=== PATIENT | male | born 1945 | race Caucasian/White ===

== ENCOUNTER → 2018-06-13 | Outpatient (CLI) | payer OTHER ==
[~2018-06-13] VITALS: Ht 188 cm; Wt 143.2 kg
[~2018-06-13] MED LIST: ASPIRIN325 PO; CLARITIN10 MG PO; CLONAZEPAM 0.50.5 M1 PO; FINASTERIDE5 MG PO; FISH OIL 1,001000 M2 PO; FLOMAX0.4 MG PO; FOLBIC RF TABL1 EACH PO; MAGOX 400400 MG PO; MAXIMUM DAILY1 EACH PO; METOPROLOL TART25 MG PO; NABUMETONE 500500 M1 PO; NEXIUM40 MG PO; POTASSIUM CITR10 ME1 PO; SIMVASTATIN40 MG PO; TELMISARTAN40 MG PO; VITAMINC500 PO; ZYLOPRIM300 MG PO
[2018-06-13 08:42] VITALS: BP 168/87
--- NOTE | 2018-06-13 08:58 | NUR ---
Pain Clinic Assessment: 1. History of Osteoarthritis: History of Rheumatoid Arthritis: 2. Height: 6 ft. 2 in. 188.0 cm. Weight: 315.6 lb. oz. 143.156 kg. Patient's BMI: 40.5 3. Vital Signs: BP: 168/87 Pulse: 83 Resp: 20 Temp: 02 Sat: 96 ECG Mon: 4. Pain Intensity: 6 5. Fall Risk: Dizziness: Y Needs help standing or walking: N Fallen in the last 3 months: N Fall risk comments: 6. Patient on Blood Thinner: None 7. History of Hypertension: Y 8. Opioid Therapy greater than 6 weeks: N Opiate Contract Signed: 9. Risk Assessment Tool Provided: 10. Functional Assessment Tool: 48 11. Recreational Drug Use: Past greater than 3 mos Drug Type: Tobacco Use: Never Smoker Tobacco Type: Amount or Packs/day: How Many Years: Alcohol Use: Yes Frequency: Weekly Quant:
--- NOTE | 2018-06-19 07:33 | HPC ---
[facility] [place] [address] PAIN MANAGEMENT CONSULTATION Name: REINALDO LOMBARDO Room #: REG ELTON Huff#: [id number] Admission: 06/13/18 ������������������ Attend Phys: Greg Spencer DO Discharge: ������������������ Date of : 43 Report #: [id number] THIS REPORT FOR: //name// CC: Macario Molina MD DATE OF SERVICE: 06/13/2018 REFERRING PHYSICIAN: Macario Evangelista M.D. CHIEF COMPLAINT: Axial back pain. HISTORY OF PRESENT ILLNESS: As you know, the patient is a 72-year-old male who was seen by my partner, Dr. Lay Molina. He was followed at our clinic at [facility]. It was determined that the patient's symptoms might be amenable to radiofrequency lesioning of the medial branch nerves. He was sent to our clinic to trial bilateral L2, L3, L4 and L5 medial branch nerve blocks. The patient apparently did well with the initial intra-articular facet injections at L4-L5 and L5-S1 with improvement in symptoms of approximately 30% overall. He received excellent benefit for approximately one day. He has been referred to my clinic to trial a medial branch nerve blocks if these are successful at alleviating the patient's symptoms to greater than 70% overall improvement, we would look forward to moving towards radiofrequency lesioning. The patient was advised radiofrequency lesioning is a stage process with one side being performed followed by 2 weeks later with the second side being completed. The patient has agreed to undergo the medial branch nerve blocks today. If these are successful, then move forward with radiofrequency lesioning. Pain score today is rated at 6/10. ALLERGIES: MORPHINE. CURRENT MEDICATIONS: Multivitamin, ascorbic acid, magnesium oxide, vitamin B12, loratadine, omega 3 fish oil, aspirin, tamsulosin, metoprolol, clonazepam, fluticasone, telmisartan, omeprazole, nabumetone, potassium citrate, allopurinol and simvastatin. SOCIAL HISTORY: The patient is a nonsmoker. He denies IV or illicit drug use. Admits to approximately 2 alcoholic beverages per week. He is retired and has been so for nearly 13 years. He is unaccompanied at today's visit. IMAGING DATA: No new imaging available. PQRS: The patient has known osteoarthritic changes of the lumbar spine, no rheumatoid arthritis. He is placing pain intensity 6/10, is not a fall risk, [place] [address] PAIN MANAGEMENT CONSULTATION Name: REINALDO LOMBARDO Room #: REG [facility]#: [id number] Admission: 06/13/18 ������������������ Attend Phys: Greg Spencer DO Discharge: ������������������ Date of : 44 Report #: [id number] has not had a fall in the last 3 months. He is not on blood thinners. He is treated for hypertension. He is not on chronic opioids. He has a low opioid addiction potential. He is placing pain impact score 48/70 indicating severe interference of daily activities secondary to pain. PHYSICAL EXAMINATION: VITAL SIGNS: Blood pressure 168/87, pulse 83 and respiratory rate 20 and unlabored. The patient is 96% on room air. Height 6 feet 2 inches, weight 315.6 pounds and BMI calculated 40.5. GENERAL: Well-developed, well-nourished, well-hydrated, class 3, morbidly obese 72-year-old male. He appears his stated age. He is in no acute distress, awake, alert and oriented x 3. Current pain score is rated at 6/10. HEENT: Normocephalic and atraumatic. Pupils equal, round and reactive to light. Extraocular muscles are intact. EXTREMITIES: Show no clubbing, no cyanosis and no edema. MUSCULOSKELETAL: Lower extremity strength appears symmetrical 5/5. He is intact to light touch from L1 through S2 dermatomes. Seated straight leg raising negative. Supine straight leg raising negative. Taryn's test is negative. Modified Gaenslen's positive for axial low back pain. Ankle clonus negative. Babinski is negative. Lumbar provocation testing including extension, rotation, lateral flexion all intensify axial back pain. ASSESSMENT: 1. Lumbosacral spondylosis without radiculopathy. 2. Facet arthropathy of the lumbar spine. 3. Lumbar degeneration. 4. Intractable pain. PLAN: 1. The patient has been referred to my service for evaluation for facet arthropathy pain. The patient does appear to be suffering from facet changes in the lumbar spine. This is confirmed on recent imaging. The patient underwent intra-articular facet injections with Dr. Molina at his last visit with improvement in pain transiently for about 24 hours, long-term benefit about 30%. He returns today per the request of Dr. Molina and his primary care physician to trial medial branch nerve blocks blocking the L2, L3, L4 and L5 medial branch nerves of the bilateral lumbar spine. If this is effective at treating the patient's symptoms and his symptoms are reduced by 70% for greater than a period of 5 hours, then he might be a possible candidate to undergo radiofrequency lesioning. He had been referred to our clinic to trial these medial branch nerve blocks to determine if symptoms can be controlled with interventional treatments. The patient has been advised of the risks and the benefits of bilateral medial branch nerve blocks at 4 levels. These risks include but are not necessarily limited to bleeding, bruising, infection, worsening pain, no relief of pain, [facility] [address] [place] [address] PAIN MANAGEMENT CONSULTATION Name: REINALDO LOMBARDO Room #: REG ELTON Lilia.#: [id number] Admission: 06/13/18 ������������������ Attend Phys: Greg Spencer DO Discharge: ������������������ Date of : 44 Report #: [id number] also risk of temporary or permanent muscle weakness, temporary or permanent nerve damage, possible paralysis and . The patient states understood and wished to proceed. 2. No medication changes made at today's visit. The patient will continue current medical therapy as previously prescribed. 3. The patient will contact our clinic once his pain has returned to its normal level. At that time, we will determine if the time frame is appropriate and we feel he received a significant amount of improvement in symptoms. He is starting his pain level at 6/10. We need to see a greater than 70% improvement in symptoms lasting for at least 3 hours if this medial branch block is to be deemed successful. The patient will contact our clinic and we will determine if whether or not radiofrequency lesioning would be an appropriate next step in treatment. PROCEDURE NOTE DESCRIPTION OF PROCEDURE: Bilateral L2, L3, L4 and L5 medial branch nerve blocks under fluoroscopic guidance. This is the second of 2 diagnostic medial branch blocks on the right and left sides that the patient is undergoing. After obtaining written consent, the patient was taken back to the fluoroscopy suite and placed in a prone position on the fluoroscopy table with a pillow under the abdomen to decrease the lumbar lordosis. The skin overlying the lumbosacral area was prepped and draped in an aseptic fashion. The L3 transverse process corresponding the L2 median branch nerve, L4 transverse process corresponding the L3 median branch nerve and the L5 transverse process corresponding the L4 medial branch nerve on the right and left sides were visualized under AP fluoroscopy. The skin and subcutaneous tissue overlying the target sites of injection 22-gauge 6-inch was anesthetized using 2 mL of 1% lidocaine. A bent spinal needle with a 0.5 mL tip was advanced under fluoroscopic guidance using a superior to inferior and lateral to medial approach to the dorsal, superior and medial aspect of the base of the transverse processes. The needles were then directed ventral, medial and caudad to reach the target locations. An oblique view facilitated needle placement with properly positioned needless in the middle of the "eye" of the Kenji dog for the medial branch blocks. At each site the needles rested on periosteum. After negative aspiration for heme or CSF, 0.5 mL of Omnipaque dye was injected at each site under live fluoroscopy, demonstrating absence of vascular uptake. After negative aspiration for heme or CSF, bupivacaine 0.5% was slowly injected at each site to avoid forcing the solution away from the target points. The needles were then removed. The L5 dorsal ramus block on the right and left sides were performed using a slightly oblique approach under fluoroscopic guidance, placing the needle within [address] [address] PAIN MANAGEMENT CONSULTATION Name: REINALDO LOMBARDO Room #: REG ELTON Huff#: [id number] Admission: 06/13/18 ������������������ Attend Phys: Greg Spencer DO Discharge: ������������������ Date of : 44 Report #: [id number] the groove between the sacral site and the superior articular process of S1. The needle rested on periosteum. After negative aspiration for heme or CSF, 0.5 mL of Omnipaque dye was injected at under live fluoroscopy, demonstrating absence of vascular uptake. After negative aspiration for heme or CSF, bupivacaine 0.5% was slowly injected to avoid forcing the solution away from the target point. The needle was then removed. Sterile bandages were placed over the injection site. There were no apparent complications. The patient tolerated the procedure well and was carefully escorted to the recovery room in stable condition. The VAS was 6/10 before the procedure and 2/10 at 10 minutes after the procedure. After meeting discharge criteria, the patient was discharged home. ��������������������������������������������� <ELECTRONICALLY SIGNED> ���������������������������������������� By: Greg Spencer DO ��������������������������������������������� 06/19/18 0733 [id number] Greg Spencer DO /nt
== END | disposition home or self-care (01) ==
LOC: PAIN 06:47
DX: M47.817 Spondylosis without myelopathy or radiculopathy, lumbosacral region (principal); M12.88 Other specific arthropathies, not elsewhere classified, other specified site; M51.36 Other intervertebral disc degeneration, lumbar region; G89.29 Other chronic pain; E66.01 Morbid (severe) obesity due to excess calories; Z68.41 Body mass index [BMI] 40.0-44.9, adult; Z88.8 Allergy status to other drugs, medicaments and biological substances; Z79.899 Other long term (current) drug therapy; Z79.82 Long term (current) use of aspirin

== ENCOUNTER → 2018-06-20 | Outpatient (CLI) | payer OTHER ==
[~2018-06-20] VITALS: Ht 188 cm; Wt 142.9 kg
--- NOTE | ~2018-06-20 | HPC ---
[address] [address] PAIN MANAGEMENT CONSULTATION Name: REINALDO LOMBARDO Room #: REG ELTON Refugio#: [id number] Admission: 06/20/18 ������������������ Attend Phys: Greg Spencer DO Discharge: ������������������ Date of : 44 Report #: [id number] THIS REPORT FOR: //name// CC: Macario Molina MD DATE OF SERVICE: 06/20/2018 CHIEF COMPLAINT: Axial back pain, left-sided. HISTORY OF PRESENT ILLNESS: As you know, the patient is a 72-year-old male who was seen by my partner, Dr. Lay Molina, for facet arthropathy of the lower lumbar spine. He underwent intra-articular facet injections with good benefit, but only transiently improved the patient's symptoms. He was subsequently referred to our clinic to trial medial branch nerve blocks and possible radiofrequency lesioning. He underwent successfully bilateral L2, L3, L4 L5 medial branch nerve blocks at our last visit reporting excellent benefit. He returns today to begin the radiofrequency lesioning process. He wishes to undergo left side initially as this is the main pain generator. He believes the right side is more reactionary though he does have some changes within that right side that may ultimately need to be addressed as well. He returns to undergo the left L2, L3, L4, L5 radiofrequency lesioning of the medial branch nerves of the lumbar spine. He denies new injury, new trauma or any changes in medical history since our last visit. ALLERGIES: MORPHINE. CURRENT MEDICATIONS: Multivitamin, ascorbic acid, magnesium oxide, vitamin B12, loratadine, omega 3 fish oil, aspirin, metoprolol, tamsulosin, allopurinol, clonazepam, fluticasone, telmisartan, omeprazole, nabumetone, potassium citrate and simvastatin. SOCIAL HISTORY: The patient reports himself as a nonsmoker. He denies IV or illicit drug use. Admits to approximately 2 alcoholic beverages per week. He is retired, retired 13 years ago, accompanied by his present in room today. IMAGING: No new imaging available. PQRS: The patient has known arthritic changes of the lumbar spine, no rheumatoid arthritis. He is placing pain intensity today at 6-7/10. He is not a fall risk, has not had a fall in the last 3 months. He is not on blood thinners. He has history of hypertension. He is not on chronic opioids. He has a low opioid addiction potential. He is placing pain impact score 48/70, moderate to severe interference of daily [place] [address] PAIN MANAGEMENT CONSULTATION Name: REINALDO LOMBARDO [id number] Admission: 06/20/18 ������������������ Attend Phys: Greg Spencer DO Discharge: ������������������ Date of : 43 Report #: [id number] PHYSICAL EXAMINATION: VITAL SIGNS: Blood pressure 168/90, pulse 66, respiratory rate 20 and unlabored. The patient is 97% on room air. Height 6 feet 2 inches tall, weight 315 pounds, BMI calculated 40.4. GENERAL: Well-developed, well-nourished, well-hydrated, class 3, morbidly obese 72-year-old male. He appears stated age, pain is rated around 6-7/10. HEENT: Normocephalic, atraumatic. Pupils are equal, round, reactive to light. EXTREMITIES: Show no clubbing, no cyanosis, and no edema. MUSCULOSKELETAL: Lower extremity strength is symmetrical 5/5, muscle bulk and tone equal and symmetrical in comparing left lower extremity over right. Seated straight leg raising is negative. Supine straight leg raising remains negative. Lumbar provocation testing is met with increasing axial back pain. ASSESSMENT: 1. Lumbosacral spondylosis with radiculopathy. 2. Facet arthropathy of the lumbar spine. 3. Lumbar degeneration. 4. Morbid obesity. 5. Chronic intractable pain. PLAN: 1. The patient has returned today in followup visit having successfully completed medial branch nerve blocks with good efficacy blocking the L2, L3, L4 and L5 medial branch nerves at our last visit. He reported good and prolonged benefit with this lasting for approximately 4 hours with slow and progressive return of symptoms typical for the second in the series of medial branch blocks. We have consented and we will perform left L2, L3, L4, L5 medial branch nerve radiofrequency ablations today. The patient has been advised of the risks and benefits of this procedure. These risks include but are not necessarily limited to bleeding, bruising, infection, worsening pain, no relief of pain, also risk of temporary or permanent muscle weakness, temporary or permanent inadvertent nerve damage, possible paralysis and . The patient states understood and wished to proceed. 2. No medication changes made at today's visit. We discussed with the patient the possibility of adding pain medication as he heals from this radiofrequency lesioning as this can be somewhat painful for a period of up to 2 weeks. The patient chose not to have medications adjusted today. 3. The patient will return to our clinic in approximately 2 weeks. At that time, we will review the efficacy of today's left L2, L3, L4 and L5 radiofrequency lesioning and determine if the right L2, L3, L4 and L5 medial branch nerves need to be addressed. PROCEDURE NOTE: DESCRIPTION OF PROCEDURE: Left L2, L3, L4, L5 medial branch radiofrequency [facility] [address] [place] [address] PAIN MANAGEMENT CONSULTATION Name: REINALDO LOMBARDO Edwin Room #: REG ELTON Huff#: [id number] Admission: 06/20/18 ������������������ Attend Phys: Greg Spencer DO Discharge: ������������������ Date of : 44 Report #: [id number] lesioning. The procedure was explained and informed consent was obtained from the patient. The patient was informed of the risks of procedure including infection, bleeding, nerve damage, failure to produce pain relief and postoperative discomfort lasting several weeks. 1. The patient states he understood his risks and benefits and chose to move forward with the procedure. The patient was then taken back to fluoroscopy suite, placed in prone position with pillow under abdomen to decrease lumbar lordosis. Skin overlying lumbosacral area then prepped and draped in aseptic fashion. AP imaging of the lumbar spine was used to identify the L2 through L5 vertebral bodies and the sacral ala. The target location of the left side was marked. The levels of L3 transverse process corresponding to the L3 medial branch nerve, the L4 transverse process corresponding to the L3 medial branch nerve and the L5 transverse process corresponding to the L4 medial branch nerve were established. Using a 25-gauge, 1-1/4 inch needle, skin wheals were placed at the junction of the transverse processes and the respective superior articular process using 1 mL of 1% preservative-free lidocaine at each site. We were careful to anesthetize the skin and not the deep tissues. The radiofrequency lesioning needles were advanced under fluoroscopic guidance using a superior and inferior, lateral to medial approach to the dorsal superior and medial aspect of the base of the transverse processes. Mason were then directed caudally and medially to reach the target locations. An oblique view facilitated needle placement with properly positioned needles within the middle of the eye of the Kenji dog. At each site, the needles rested on periosteum. Touching bone initially assured the needles were not placed too deeply. Radiofrequency lesioning of the L5 medial branch nerve on the left side was performed using a superior and inferior, lateral to medial approach under fluoroscopic guidance, placing the needle within the groove between the sacral ala and the superior articular process of S1. Needle rested on periosteum. Stimulation was performed at each level once the cannulas were in position. Sensory stimulation was performed at 0.3, 0.3, 0.2 and 0.3 with impedance of 179, 200, 330 and 250 at 50 Hz for the L2, L3, L4 and L5 medial branch nerves respectively. Good stimulation of lumbar and buttock region was elicited indicating correct alignment with the posterior primary ramus. Absence of lower motor fasciculation was noted at 3 volts 2 Hz stimulation during testing of the L2, L3, L4, and L5 medial branch nerves respectively. Following this, affirmation of disassociation between sensory and motor stimulation, negative aspiration for heme and cerebrospinal fluid was noted at each level. Next, 1 mL of bupivacaine 0.5% was injected slowly. After a 90-second delay, lesions were performed at temperature of 80 degrees Celsius for a total of 90 seconds. After the needle tips had cooled, 1 mL of a solution containing 2 mL 40 mg per mL, [address] [address] PAIN MANAGEMENT CONSULTATION Name: REINALDO LOMBARDO Room #: REG [facility] Huff#: [id number] Admission: 06/20/18 ������������������ Attend Phys: Greg Spencer DO Discharge: ������������������ Date of : 43 Report #: [id number] mg total triamcinolone and 3 mL bupivacaine 0.5% was injected slowly to avoid forcing the solution away from the site. Mason were retracted senior care, flushed with 1 mL of 1% lidocaine and removed. Sterile bandage placed over injection site. There were no new motor deficits present in the lower extremities following procedure. The patient tolerated procedure well, carefully escorted to recovery room in stable condition. No apparent complications. After meeting discharge criteria, the patient discharged home. ��������������������������������������������� ���������������������������������������� By: ��������������������������������������������� 0823 0001 Greg Spencer DO /nt
[2018-06-20 08:58] VITALS: BP 168/90
--- NOTE | 2018-06-20 09:40 | NUR ---
Pain Clinic Assessment: 1. History of Osteoarthritis: B/L HANDS SPINE LEGS History of Rheumatoid Arthritis: NONE 2. Height: 6 ft. 2 in. 188.0 cm. Weight: 315.0 lb. oz. 142.884 kg. Patient's BMI: 40.4 3. Vital Signs: BP: 168/90 Pulse: 66 Resp: 20 Temp: 02 Sat: 97 ECG Mon: 4. Pain Intensity: 1-NOW, 6-7 WHEN ACTIVE 5. Fall Risk: Dizziness: N Needs help standing or walking: N Fallen in the last 3 months: N Fall risk comments: 6. Patient on Blood Thinner: None 7. History of Hypertension: Y 8. Opioid Therapy greater than 6 weeks: N Opiate Contract Signed: 9. Risk Assessment Tool Provided: 10. Functional Assessment Tool: 48 11. Recreational Drug Use: Never Drug Type: Tobacco Use: Never Smoker Tobacco Type: Amount or Packs/day: How Many Years: Alcohol Use: Yes Frequency: Monthly Quant: 1-2
== END | disposition home or self-care (01) ==
LOC: PAIN 06:46
DX: M47.817 Spondylosis without myelopathy or radiculopathy, lumbosacral region (principal); M51.16 Intervertebral disc disorders with radiculopathy, lumbar region; M12.88 Other specific arthropathies, not elsewhere classified, other specified site; E66.01 Morbid (severe) obesity due to excess calories; G89.29 Other chronic pain; Z88.8 Allergy status to other drugs, medicaments and biological substances; Z79.899 Other long term (current) drug therapy; Z79.82 Long term (current) use of aspirin

== ENCOUNTER → 2018-07-10 | Outpatient (CLI) | payer OTHER ==
[~2018-07-10] VITALS: Ht 188 cm; Wt 144.4 kg
[2018-07-10 08:56] VITALS: BP 153/83
--- NOTE | 2018-07-10 09:09 | NUR ---
Pain Clinic Assessment: 1. History of Osteoarthritis: B/L HANDS SPINE LEGS History of Rheumatoid Arthritis: NONE 2. Height: 6 ft. 2 in. 188.0 cm. Weight: 318.4 lb. oz. 144.426 kg. Patient's BMI: 40.9 3. Vital Signs: BP: 153/83 Pulse: 63 Resp: 20 Temp: 02 Sat: 97 ECG Mon: 4. Pain Intensity: 2-NOW, 4-5-AVG 5. Fall Risk: Dizziness: Y Needs help standing or walking: N Fallen in the last 3 months: N Fall risk comments: 6. Patient on Blood Thinner: None 7. History of Hypertension: Y 8. Opioid Therapy greater than 6 weeks: N Opiate Contract Signed: 9. Risk Assessment Tool Provided: 10. Functional Assessment Tool: 48 11. Recreational Drug Use: Never Drug Type: Tobacco Use: Never Smoker Tobacco Type: Amount or Packs/day: How Many Years: Alcohol Use: Yes Frequency: Quant:
--- NOTE | 2018-07-18 12:39 | HPC ---
[facility] [place] [address] PAIN MANAGEMENT CONSULTATION Name: REINALDO LOMBARDO Room #: REG [facility]#: [id number] Admission: 07/10/18 ������������������ Attend Phys: Greg Spencer DO Discharge: ������������������ Date of : 43 Report #: [id number] THIS REPORT FOR: //name// CC: Macario Molina MD DATE OF SERVICE: 07/10/2018 CHIEF COMPLAINT: Axial back pain. HISTORY OF PRESENT ILLNESS: As you know, the patient is a 72-year-old male who returns today in followup visit to complete radiofrequency lesioning of the L2, L3, L4, L5 medial branch nerves on the right side. He successfully completed left-sided RFA of the L2, L3, L4, L5 medial branch nerves on 06/20/2018. He returns today with pain level of 2-4/10 depending on activity. ALLERGIES: MORPHINE. CURRENT MEDICATIONS: Multivitamin, ascorbic acid, magnesium oxide, vitamin B12, loratadine, omega-3 fish oil, aspirin, metoprolol, tamsulosin, allopurinol, clonazepam, fluticasone, telmisartan, omeprazole, nabumetone, potassium citrate and simvastatin. SOCIAL HISTORY: The patient reports himself as a nonsmoker. Denies IV or illicit drug use. Admits to 2 alcohol beverages per week. He is retired about 13 years ago, unaccompanied today. IMAGING: No new imaging available. PQRS: The patient has osteoarthritic changes of the lumbar spine. No rheumatoid arthritis. He is placing pain anywhere from 2-4/10 depending on activity. He is not a fall risk, has not had a fall in the last 3 months. He is not on blood thinners. He is treated for hypertension. He is not on chronic opioids. He is placing pain impact at 48/70, moderate interference of daily activities secondary to pain. PHYSICAL EXAMINATION: VITAL SIGNS: Blood pressure 153/83, pulse 63, respiratory rate 20 and unlabored, the patient is 97% on room air, height 6 feet 2 inches tall, weight 318.4 pounds, BMI calculated 40.9. GENERAL: Well-developed, well-nourished, well-hydrated, morbidly obese 72-year-old male appearing his stated age, pain is rated anywhere from 2-4/10 depending on activity. HEENT: Normocephalic, atraumatic. Pupils are equal, round, and reactive to [address] [address] PAIN MANAGEMENT CONSULTATION Name: REINALDO LOMBARDO Room #: REG [facility]#: [id number] Admission: 07/10/18 ������������������ Attend Phys: Greg Spencer DO Discharge: ������������������ Date of : 44 Report #: [id number] light. EXTREMITIES: Show no clubbing, no cyanosis, and no edema. MUSCULOSKELETAL: Lower extremity strength is symmetrical at 5/5. Muscle bulk and tone equal and symmetrical in comparing to left lower extremity to right. Seated straight leg raising negative. Supine straight leg raising negative. QUINTEN test is negative. Modified Gaenslen's positive for axial low back pain. ASSESSMENT: 1. Lumbosacral spondylosis without radiculopathy. 2. Facet arthropathy of the lumbar spine. 3. Lumbar degeneration. 4. Morbid obesity. 5. Chronic intractable pain. PLAN: 1. The patient returns today in followup visit to complete radiofrequency lesioning on the right side. He successfully completed left L2, L3, L4 and L5 medial branch radiofrequency lesioning at her last visit of 06/20/2018. He returns today in followup visit to undergo right L2, L3, L4, L5 radiofrequency lesioning to complete RFA process. He has been advised risks and benefits of procedure, states understood and wished to proceed. 2. No medication changes made at today's visit. The patient will continue current medical therapy as previously prescribed. 3. The patient will return to see Dr. Bryant Molina, his pain physician, at [facility] for continued treatment. PROCEDURE: Right L2, L3, L4, L5 radiofrequency lesioning of the medial branch nerves of the lumbar spine. The procedure was explained. Informed consent was obtained from the patient. The patient was informed of the risks of procedure including infection, bleeding, nerve damage, failure to produce pain relief and postoperative discomfort lasting for several weeks. The patient states he understood his risks and wished to proceed. The patient was then taken to the fluoroscopy suite, placed in prone position with pillow under abdomen to decrease lumbar lordosis. Skin overlying the lumbosacral area then prepped and draped in aseptic fashion. AP imaging of the lumbar spine was used to identify the L2 through L5 vertebral bodies and the sacral ala. Target location on the right side was marked. The levels of the L3 transverse process corresponding to the L2 medial branch nerve, the L4 transverse process corresponding to the L3 medial branch nerve and the L5 transverse process corresponding to the L4 medial branch nerve were established. Using a 25-gauge, 1-1/4 inch needle, skin wheals were then placed at the junction of the transverse processes and the respective superior articular [address] [address] PAIN MANAGEMENT CONSULTATION Name: REINALDO LOMBARDO Room #: REG [facility]#: [id number] Admission: 07/10/18 ������������������ Attend Phys: Greg Spencer DO Discharge: ������������������ Date of : 44 Report #: [id number] process using 1 mL of 1% lidocaine. We were careful to anesthetize the skin and not the deep tissues. Radiofrequency lesioning needles were then advanced under fluoroscopic guidance using a superior, inferior and lateral to medial approach to the dorsal superior and medial aspect of the transverse processes. [place] were then directed caudally to reach the targeted locations. An oblique view facilitated needle placement with properly positioned needles within the middle of the eye of the Kenji dog. At each site, the needles rested on periosteum. Touching bone initially assured the needles were not placed too deeply. Radiofrequency lesioning of the L5 medial branch nerve on the right side was performed using a superior and inferior, lateral to medial approach under fluoroscopic guidance, placing the needle within the groove between the sacral ala and the superior articular process of S1. Needle rested on periosteum. Stimulation was performed at each level once the cannulas were in position. Sensory stimulation was performed at 0.4, 0.4, 0.2 and 0.2 with impedance of 280, 230, 300 and 280 at 50 Hz for the L2, L3, L4, and L5 medial branch nerves respectively. Good stimulation of the lumbar and buttock region was elicited indicating correct alignment with the posterior primary ramus. Absence of motor fasciculation was noted at 3 volts 2 Hz stimulation during testing of the L2, L3, L4, L5 medial branch nerves on the right side respectively. Following this, affirmation of dissociation between sensory and motor stimulation, negative aspiration noted for heme or cerebrospinal fluid at each level. Next, 1 mL of bupivacaine 0.5% was injected slowly. After a 90-second delay, lesions were performed at 80 degrees Celsius for a total of 90 seconds. After the needle tips cooled, 1 mL of a solution containing 2 mL 40 mg per mL, 80 mg total triamcinolone and 2 mL bupivacaine 0.5% was then injected slowly to avoid forcing the solution away from the site. Westby were then retracted group home, flushed with 1 mL of 1% lidocaine and removed. Sterile bandage placed over injection sites. There were no new motor deficits present in the lower extremities following the procedure. The patient tolerated the procedure well, carefully escorted to recovery room in stable condition. No apparent complications. After meeting our discharge criteria, the patient is discharged home. ��������������������������������������������� <ELECTRONICALLY SIGNED> ���������������������������������������� By: Greg Spencer DO ��������������������������������������������� 07/18/18 1239 [id number] [id number] Greg Spencer DO /nt
== END | disposition home or self-care (01) ==
LOC: PAIN 06:52
DX: M47.817 Spondylosis without myelopathy or radiculopathy, lumbosacral region (principal); M47.816 Spondylosis without myelopathy or radiculopathy, lumbar region; M51.36 Other intervertebral disc degeneration, lumbar region; G89.29 Other chronic pain; E66.01 Morbid (severe) obesity due to excess calories; I10 Essential (primary) hypertension; Z88.6 Allergy status to analgesic agent; Z79.899 Other long term (current) drug therapy; Z68.41 Body mass index [BMI] 40.0-44.9, adult; Z98.890 Other specified postprocedural states

== ENCOUNTER → 2020-07-01 | Outpatient (CLI) | payer OTHER ==
[~2020-07-01] VITALS: Ht 188 cm; Wt 137.4 kg
[~2020-07-01] MED LIST changes: +HYDROCHLOROTHIA25 M1 PO
[2020-07-01 08:24] VITALS: BP 134/73
--- NOTE | 2020-07-01 08:32 | NUR ---
Pain Clinic Assessment: 1. History of Osteoarthritis: B/L HANDS SPINE LEGS History of Rheumatoid Arthritis: NONE 2. Height: 6 ft. 2 in. 188.0 cm. Weight: 303.0 lb. oz. 137.440 kg. Patient's BMI: 38.9 3. Vital Signs: BP: 134/73 Pulse: 71 Resp: 18 Temp: 02 Sat: 100 ECG Mon: 4. Pain Intensity: 7 WHEN MOVING. 0 SITTING 5. Fall Risk: Dizziness: N Needs help standing or walking: N Fallen in the last 3 months: N Fall risk comments: 6. Patient on Blood Thinner: None 7. History of Hypertension: Y 8. Opioid Therapy greater than 6 weeks: N Opiate Contract Signed: 9. Risk Assessment Tool Provided: 0-LOW RISK 10. Functional Assessment Tool: 48 11. Recreational Drug Use: Never Drug Type: Tobacco Use: Never Smoker Tobacco Type: Amount or Packs/day: How Many Years: Alcohol Use: Yes Frequency: Quant:
--- NOTE | 2020-07-01 10:11 | HPC ---
[facility] [place] [address] PAIN MANAGEMENT CONSULTATION Name: REINALDO LOMBARDO Room #: REG [facility]#: [id number] Admission: 07/01/20 Attend Phys: Greg Spencer DO Discharge: Date of : 44 Report #: [id number] THIS REPORT FOR: cc: Macario Evangelista MD, David L. MD Johnson, James E. DO ~ DATE OF SERVICE: 07/01/2020 REFERRING PHYSICIAN: Macario Evangelista MD CHIEF COMPLAINT: Recurrent axial back pain. HISTORY OF PRESENT ILLNESS: As you know, the patient is a very pleasant 74-year-old male returning in followup visit with recurrence of axial back pain. The patient indicates pain has slowly and progressively returned without inciting injury or trauma. He is reporting pain score up to 7-8/10 with movement and standing, improves with lying and sitting down. The patient reports same distribution and intensity of symptoms as he had prior to the radiofrequency lesioning performed nearly 2 years ago. The patient states that over the past 2 years, he has been doing very well in fact had reportedly experienced near 100% improvement overall pain lasting the 2 years. The last radiofrequency lesioning we was 07/10/2018. Unfortunately, his symptoms have begun to return. He returns today in followup visit to begin the authorization process to undergo radiofrequency lesioning of the medial branch nerves of the lumbar spine in hopes of obtaining similar benefit. Again, the patient has suffered no new injury, trauma or any changes in medical history that would preclude the patient from undergoing the procedures. ALLERGIES: MORPHINE. CURRENT MEDICATIONS: Hydrochlorothiazide 25 mg once a day, multivitamin 1 tab per day, ascorbic acid 500 mg once a day, magnesium oxide 400 mg once a day, vitamin B12 1 tab per day, loratadine 10 mg per day, omega-3 fish oil 1 tab per day, aspirin 325 mg per day, tamsulosin 0.4 mg once a day, metoprolol 25 mg b.i.d., clonazepam 0.5 mg p.r.n., finasteride 5 mg once a day, telmisartan 40 mg once a day, omeprazole 40 mg per day, nabumetone 500 mg every 6 hours, potassium citrate 10 mEq 6 times a day, allopurinol 300 mg once a day, simvastatin 40 mg per day. SOCIAL HISTORY: The patient denies tobacco, denies IV or illicit drug use. Admits to occasional alcohol beverage. He is retired, retired 15 years ago, unaccompanied today. IMAGING: No new imaging available. PQRS: The patient has known arthritic changes of the lumbar spine, bilateral [address] [address] PAIN MANAGEMENT CONSULTATION Name: REINALDO LOMBARDO Room #: REG [facility]#: [id number] Admission: 07/01/20 Attend Phys: Greg Spencer DO Discharge: Date of : 44 Report #: [id number] hips and knees and bilateral hands. No rheumatoid arthritis. Placing the pain intensity today at 7/10. He is not at fall risk, has not had a fall in last 3 months. He is not on blood thinners, but is treated for hypertension. He is on no chronic opioids, has a low opioid addiction potential. Pain impact is 40/70, [id number] interference of daily activities secondary to pain. PHYSICAL EXAMINATION: VITAL SIGNS: Blood pressure 134/73, pulse 71, respiratory rate 18 and unlabored. The patient is 100% on room air, height 6 feet 2 inches tall, weight 303 pounds, BMI calculated 38.9. GENERAL: Well-developed, well-nourished, well-hydrated exogenously obese 74-year-old male appearing stated age, pain is rated today 7/10. HEENT: Normocephalic, atraumatic. Pupils equal, round and responsive. Extraocular muscles are intact. Speech fluent. EXTREMITIES: Show no clubbing, no cyanosis and no edema. MUSCULOSKELETAL: Lower extremity strength is symmetrical 5/5, intact to light touch from L1 through S2 dermatomes. Seated straight leg raising negative. Supine straight leg raising negative. Taryn's test is negative. Muscle bulk and tone is equal and symmetrical in lower extremities. Modified Gaenslen's positive for axial low back pain. Lumbar provocation including extension, rotation and lateral flexion all intensify axial back pain. Slight forward flexion of the lumbar spine improves pain minimally. There is palpatory tenderness over the paraspinal musculature of lower lumbar spine. No spinous process tenderness. ASSESSMENT: 1. Lumbosacral spondylosis without radiculopathy. 2. Facet arthropathy of the lumbar spine. 3. Lumbar degeneration. 4. Obesity. 5. Chronic intractable pain. PLAN: 1. The patient returns today in followup visit having noted two-year improvement in axial back pain after undergoing radiofrequency lesioning of medial branch nerves of the lumbar spine. The last radiofrequency lesioning process was performed on 07/10/2018 and he has been doing well since that time. Unfortunately, his symptoms have begun to return. It has been a slow and progressive process. He has now reached a level of intolerability with a pain level of 7/10. He returns today in followup visit to begin the process of undergoing repeat radiofrequency lesioning of medial branch nerves of the lumbar spine. The patient understands he has third democrat payer restrictions that require authorization to be completed before the patient could undergo the radiofrequency lesioning process. There is a strong possibility that the patient will have to undergo medial branch nerve blocks x 1 to confirm his symptoms are related to the medial branch nerves. Before moving forward with [address] [address] PAIN MANAGEMENT CONSULTATION Name: JACEANIKETVENKATESHJERRYREINALDO J Room #: REG [facility]#: [id number] Admission: 07/01/20 Attend Phys: Greg Spencer DO Discharge: Date of : 43 Report #: [id number] radiofrequency lesioning, we will confirm this with his third democrat payer. 2. We will begin the process of authorization for the patient to undergo radiofrequency lesioning. This takes anywhere from 4-7 working days. We will contact the patient once this authorization has been obtained for the patient to undergo radiofrequency lesioning of the medial branch nerves to address the medial branch nerves at L2, L3, L4 and L5, similar to processes done 2 years ago. We will begin this authorization process. Once it has been completed, we will have the patient return to undergo the medial branch blocks if necessary or move directly into radiofrequency lesioning. 3. No medication changes made at today's visit. The patient will continue current medical therapy as prior prescribed. 4. I will see the patient back in followup visit once we have achieved authorization to undergo radiofrequency lesioning of the medial branch nerves to address L2, L3, L4 and L5 medial branch nerves. <ELECTRONICALLY SIGNED> By: Greg Spencer DO 07/01/20 1011 [id number] Greg Spencer DO /nt
== END ==
LOC: PAIN 06-03 06:42
PROVIDERS: ATTEND Anesthesiology Pain Medicine
DX: M47.817 Spondylosis without myelopathy or radiculopathy, lumbosacral region (principal); M51.36 Other intervertebral disc degeneration, lumbar region; E66.9 Obesity, unspecified; G89.29 Other chronic pain

== ENCOUNTER → 2020-07-07 | Outpatient (CLI) | payer OTHER ==
[~2020-07-07] VITALS: Ht 188 cm; Wt 138.0 kg
[2020-07-07 08:30] VITALS: BP 142/71
--- NOTE | 2020-07-07 08:46 | NUR ---
Pain Clinic Assessment: 1. History of Osteoarthritis: B/L HANDS SPINE LEGS History of Rheumatoid Arthritis: NONE 2. Height: 6 ft. 2 in. 188.0 cm. Weight: 304.2 lb. oz. 137.985 kg. Patient's BMI: 39.0 3. Vital Signs: BP: 142/71 Pulse: 60 Resp: 16 Temp: 02 Sat: 98 ECG Mon: 4. Pain Intensity: 8 WHEN MOVING. 0 SITTING 5. Fall Risk: Dizziness: N Needs help standing or walking: N Fallen in the last 3 months: N Fall risk comments: 6. Patient on Blood Thinner: None 7. History of Hypertension: Y 8. Opioid Therapy greater than 6 weeks: N Opiate Contract Signed: 9. Risk Assessment Tool Provided: 0-LOW RISK 10. Functional Assessment Tool: 48 11. Recreational Drug Use: Never Drug Type: Tobacco Use: Never Smoker Tobacco Type: Amount or Packs/day: How Many Years: Alcohol Use: Yes Frequency: Quant:
--- NOTE | 2020-07-07 12:24 | HPC ---
[facility] [place] [address] PAIN MANAGEMENT CONSULTATION Name: REINALDO LOMBARDO Room #: REG [facility]#: [id number] Admission: 07/07/20 Attend Phys: Greg Spencer DO Discharge: Date of : 43 Report #: [id number] THIS REPORT FOR: cc: Macario Evangelista MD, David L. MD Johnson, James E. DO ~ DATE OF SERVICE: 07/07/2020 CHIEF COMPLAINT: Axial back pain. HISTORY OF PRESENT ILLNESS: As you know, the patient is a very pleasant 74-year-old male returning in followup visit to begin radiofrequency lesioning in the medial branch nerves of the lumbar spine. The patient, as you are aware, underwent radiofrequency lesioning at previous evaluations, which provided almost 2 years of improvement in symptoms. Unfortunately, his symptoms reoccurred. We saw the patient back in followup visit, 07/01/2020, and he was established today's appointment to undergo left L2, L3, L4, L5 medial branch radiofrequency lesioning with plans then progressed towards right L2, L3, L4, L5 radiofrequency lesioning in 2 weeks. He returns today in followup visit reporting a pain score of 8/10. ALLERGIES: MORPHINE. CURRENT MEDICATIONS: See chart. SOCIAL HISTORY: The patient denies tobacco, alcohol, IV or illicit drug use. He is retired, retired about 15 years ago, unaccompanied today. IMAGING: No new imaging available. PQRS: The patient has known arthritic changes of the lumbar spine, bilateral hips, knees and hands. No rheumatoid arthritis. Placing current pain intensity at 8/10, not a fall risk, has not had a fall in the last 3 months, is not on blood thinners, but is treated for hypertension. He is not on any chronic opioids, has a low opioid addiction potential based on assessment tool. Pain impact is 48/70, severe interference of daily activities secondary to pain. PHYSICAL EXAMINATION: VITAL SIGNS: Blood pressure 142/71, pulse 60, respiratory rate 16 and unlabored. The patient 98% on room air, height 6 feet 2 inches tall, weight 304.2 pounds, BMI calculated 39.0. GENERAL: Well-developed, well-nourished, well-hydrated 74-year-old male appearing stated age, pain is rated today up to 8/10. HEENT: Normocephalic, atraumatic. EXTREMITIES: Show no clubbing, no cyanosis, and no edema. MUSCULOSKELETAL: Lower extremity strength remains symmetrical, 5/5. Seated [address] [address] PAIN MANAGEMENT CONSULTATION Name: REINALDO LOMBARDO Room #: REG [facility]#: [id number] Admission: 07/07/20 Attend Phys: Greg Spencer DO Discharge: Date of : 43 Report #: [id number] straight leg raising negative. Supine straight leg raising negative. Taryn's test negative. Modified Gaenslen's positive for axial low back pain. Lumbar provocation testing is met with increasing axial back pain up to a level of 8/10. ASSESSMENT: 1. Lumbosacral spondylosis without radiculopathy. 2. Facet arthropathy of the lumbar spine. 3. Lumbar degeneration. 4. Chronic intractable pain. PLAN: 1. The patient returns today in followup visit to begin radiofrequency lesioning process to address axial back pain. The patient did very well with the previous radiofrequency lesioning. We are hopeful to see similar improvement with today's procedure. We will be addressing the left L2, L3, L4, L5 medial branch nerves today with plans to undergo right L2, L3, L4, L5 radiofrequency lesioning in 2 weeks. The patient has been advised risks and benefits of procedure, states understood and wished to proceed. 2. No medication changes made at today's visit. The patient will continue current medical therapy as prior prescribed. 3. We will see the patient back in followup visit in 2 weeks to address the right side of the low back medial branch nerves. PROCEDURE NOTE DESCRIPTION OF PROCEDURE: Left L2, L3, L4, L5 radiofrequency lesioning in medial branch nerves of the lumbar spine. The procedure was explained. Informed consent obtained from the patient. The patient was informed of the risks of procedure including infection, bleeding, nerve damage, failure to produce pain relief and postoperative discomfort lasting for several weeks. The patient states understood and wished to proceed. The patient was then taken to the fluoroscopy suite, placed in prone position with pillow under abdomen to decrease lumbar lordosis. Skin overlying lumbosacral area prepped and draped in aseptic fashion. AP imaging of the lumbar spine was used to identify the L2 through L5 vertebral bodies and the sacral ala. Target location on the left side was marked. The levels of the L3 transverse process corresponding the L2 medial branch nerve, the L4 transverse process corresponding the L3 medial branch nerve and the L5 transverse process corresponding the L4 medial branch nerve were established. Using a 25-gauge 1-1/4 inch needle, skin wheals were placed at the junction of the transverse processes and the respective superior articular process using [address] [address] PAIN MANAGEMENT CONSULTATION Name: REINALDO LOMBARDO Room #: REG [facility]#: [id number] Admission: 07/07/20 Attend Phys: Greg Spencer DO Discharge: Date of : 43 Report #: [id number] mL of 1% lidocaine. We were careful to anesthetize skin and not the deep tissue. Radiofrequency lesioning needles were then advanced under fluoroscopic guidance using a superior to inferior, lateral to medial approach to the dorsal superior and medial aspect of the base of the transverse processes. [place] were directed cephalad to reach the target locations. Oblique view facilitated needle placement with properly positioned needles within the middle of the "eye" of the Kenji dog. At each site, needles rested on periosteum. Touching bone initially assured the needles were not placed too deeply. Radiofrequency lesioning of the L5 medial branch nerve on the left side was performed using a superior, inferior, lateral to medial approach under fluoroscopic guidance, placing the needle within the groove between the sacral ala and superior articular process of S1. Needle rested on periosteum. Stimulation was performed at each level once the cannulas were in position. Sensory stimulation was performed at 0.3, 0.8, 0.5 and 0.3 with impedance of 211, 153, 135 and 155 at 50 Hz for the L2, L3, L4 and L5 medial branch nerves respectively. Good stimulation of the lumbar buttock region was elicited indicating correct alignment with the posterior primary ramus. Absence of motor fasciculation was noted at 3 volts 2 Hz stimulation during testing of the L2, L3, L4, L5 medial branch nerves on the left side respectively. Following this, affirmation of disassociation between sensory and motor stimulation, negative aspiration for heme and cerebrospinal fluid was noted at each level. Next, 1 mL of bupivacaine 0.5% was injected slowly. After a 90-second delay, lesions were performed at 80 degrees Celsius for a total 90 seconds. After the needle tips had cooled, 1 mL of a solution containing 1 mL 40 mg per mL, 40 mg total triamcinolone along with 3 mL of bupivacaine 0.5% was injected slowly to avoid forcing the solution away from the sites. [place]vett were then retracted half-way, flushed with 1 mL of 1% lidocaine, then removed. Sterile bandage placed over injection site. There were no new motor deficits present in the lower extremities following procedure. The patient tolerated procedure well, carefully escorted to recovery room in stable condition. He was able to move all 4 extremities after meeting our discharge criteria and then discharged home. <ELECTRONICALLY SIGNED> By: Greg Spencer DO 07/07/20 1224 1010 [id number] Greg Spencer DO /nt
== END | disposition home or self-care (01) ==
LOC: PAIN 07:34
PROVIDERS: ATTEND Anesthesiology Pain Medicine
DX: M47.817 Spondylosis without myelopathy or radiculopathy, lumbosacral region (principal); M47.816 Spondylosis without myelopathy or radiculopathy, lumbar region; M51.16 Intervertebral disc disorders with radiculopathy, lumbar region; G89.29 Other chronic pain; I10 Essential (primary) hypertension; M19.90 Unspecified osteoarthritis, unspecified site; Z98.890 Other specified postprocedural states; Z79.899 Other long term (current) drug therapy; Z88.8 Allergy status to other drugs, medicaments and biological substances

== ENCOUNTER → 2020-07-22 | Outpatient (CLI) | payer OTHER ==
[~2020-07-22] VITALS: Ht 188 cm; Wt 133.1 kg
--- NOTE | ~2020-07-22 | HPC ---
[facility] [place] [address] PAIN MANAGEMENT CONSULTATION Name: REINALDO LOMBARDO Room #: REG ELTON ParkerAllRachelleAll#: [id number] Admission: 07/22/20 Attend Phys: Greg Spencer DO Discharge: Date of : 43 Report #: [id number] THIS REPORT FOR: cc: Macario Evangelista MD, David L. MD Johnson, James E. DO ~ DOC #: [id number] cc: MD Greg Jones DO DATE OF SERVICE: 07/22/2020 CHIEF COMPLAINT: Axial back pain. HISTORY OF PRESENT ILLNESS: As you know, the patient is a very pleasant 74-year-old male having completed medial branch nerve blocks with good efficacy returning on 07/07/2020 to undergo radiofrequency lesioning of the left L2, L3, L4 and L5 medial branch nerves. He returns today to complete this radiofrequency lesioning to address the right L2 through L5 medial branch nerves. He is placing current pain score around 4/10. He reports good efficacy with the left side injections, hopeful to see similar with the right. ALLERGIES: MORPHINE. CURRENT MEDICATIONS: See chart. SOCIAL HISTORY: The patient denies tobacco, alcohol or illicit drug use. He is retired, retired about 15 years ago, unaccompanied today. IMAGING: No new imaging available. PQRS: The patient has known arthritic changes of lumbar spine, bilateral hips, knees and hands. No rheumatoid arthritis. He is placing pain intensity today at 4/10. He is not a fall risk, has not had a fall in the last 3 months. He is not on blood thinners, but is treated for hypertension. He is not on chronic opioids, has a low opioid addiction potential. Pain impact is 48/70, moderate to severe interference with daily activities secondary to pain. PHYSICAL EXAMINATION: VITAL SIGNS: Blood pressure 119/67, pulse 65, respiratory rate 14 and unlabored. The patient 97% on room air, height 6 feet 2 inches tall, weight 293.4 pounds, BMI calculated 37.7. GENERAL: Well-developed, well-nourished, well-hydrated exogenously obese 74-year-old male, appearing stated age, pain is rated today, 4/10. HEENT: Normocephalic, atraumatic. Pupils are round and responsive. The patient is wearing mask in compliance with COVID-19 regulations. EXTREMITIES: Show no clubbing, no cyanosis. No appreciable edema. [facility] [address] [place] [address] PAIN MANAGEMENT CONSULTATION Name: REINALDO LOMBARDO Room #: REG [facility]#: [id number] Admission: 07/22/20 Attend Phys: Greg Spencer DO Discharge: Date of : 43 Report #: [id number] MUSCULOSKELETAL: Lower extremity strength is symmetrical 5/5, intact to light touch from L1 through S2 dermatomes. Seated straight leg raising negative. Supine straight leg raising negative. Taryn's test remains negative. Modified Gaenslen's positive for axial low back pain over the right side. Lumbar provocation testing is met with increasing right low back pain, no left. ASSESSMENT: 1. Lumbosacral spondylosis without radiculopathy. 2. Facet arthropathy, lumbar spine. 3. Lumbar degeneration. 4. Chronic intractable pain. PLAN: 1. The patient returns today in followup visit to undergo radiofrequency lesioning of the right L2 through L5 medial branch nerves to complete the radiofrequency lesioning process. He has done very well with the left performed in June. He is hopeful to see similar improvement with his right side today. He returns for right-sided L2, L3, L4, L5 medial branch radiofrequency lesioning. The patient has been advised risks and benefits of the procedure, states understood and wished to proceed. 2. No medication changes made at today's visit. The patient will continue current medical therapy as prior prescribed. 3. We will see the patient back in followup visit on an as needed basis. We are hopeful the patient will see good and prolonged benefit with radiofrequency lesioning performed today. PROCEDURE NOTE DESCRIPTION OF PROCEDURE: Right L2, L3, L4, L5 radiofrequency lesioning of the medial branch nerves of the lumbar spine. Procedure was explained. Informed consent was obtained from the patient. The patient was informed of the risks of the procedure including infection, bleeding, nerve damage, failure to produce pain relief and postoperative discomfort lasting for several weeks. The patient states understood and wished to proceed. The patient was then taken to the fluoroscopy suite, placed in prone position with pillow under abdomen to decrease lumbar lordosis. Skin overlying lumbosacral area prepped and draped in aseptic fashion. The AP imaging of the lumbar spine was used to identify the L2 through L5 vertebral bodies and the sacral ala. Target locations of the right side was marked. The levels of the L3 transverse process corresponding the L2 medial branch nerve, the L4 transverse process corresponding the L3 medial branch nerve and the L5 transverse process corresponding the L4 medial branch nerve were established. [address] [address] PAIN MANAGEMENT CONSULTATION Name: REINALDO LOMBARDO Room #: [facility] [id number] Admission: 07/22/20 Attend Phys: Greg GerardoAll Spencer DO Discharge: Date of : 43 Report #: [id number] Using a 25-gauge 1-1/4 inch needle, skin wheals were placed at each of the junction sites of the transverse process and the respective superior articular process using 1 mL of 1% preservative-free lidocaine. We were careful to only anesthetize skin and not the deep tissue. Radiofrequency lesioning needles were then advanced under fluoroscopic guidance using a superior to inferior, lateral to medial approach to the dorsal superior and medial aspect the base of transverse processes. [place] were then directed cephalad to reach the target locations. Oblique view facilitated needle placement with properly positioned needles within the middle of the "eye" of the Kenji dog. At each site, needles rested on periosteum. Touching bone initially assured, the needles were placed too deeply. Radiofrequency lesioning of the right L5 medial branch nerve was performed using a superior, inferior, lateral to medial approach under fluoroscopic guidance, placing the needle within the groove between the sacral ala and the superior articular process of S1. Needle rested on periosteum. Stimulation was performed at each level once the cannulas were in position. Sensory stimulation performed at 0.4, 0.5, 0.3, and 0.3 with impedance of 312, 241, 311 and 153 at 50 Hz for the L2, L3, L4 and L5 medial branch nerves respectively. Good stimulation of the lumbar and buttock region was elicited indicating correct alignment with the posterior primary ramus. Absence of motor fasciculation was noted at 3 volts 2 Hz stimulation during testing of the L2, L3, L4 and L5 medial branch nerves on the right side respectively. Following this, affirmation of dissociation between sensory and motor stimulation, negative aspiration for heme or cerebrospinal fluid was noted at each level. Next, 1 mL of bupivacaine 0.5% was injected slowly. After a 90-second delay, lesions were performed at 80 degrees Celsius for a total of 90 seconds. After the needle tips had cooled, 1 mL solution containing 1 mL 40 mg per mL, 40 mg total triamcinolone along with 3 mL bupivacaine 0.5% injected slowly to avoid forcing the solution away from the sites. [place] were then retracted approximately half way and 1 mL of 1% lidocaine was used to flush the needles and the needles were then removed. Sterile bandage placed over injection site. No new motor deficits present in lower extremity following procedure. The patient tolerated the procedure well, carefully escorted to recovery room in stable condition. No apparent complications. After meeting discharge criteria, the patient discharged home. CHIEF COMPLAINT: Axial back pain. HISTORY OF PRESENT ILLNESS: As you know, the patient is a very pleasant 74-year-old male having completed medial branch nerve blocks with good efficacy returning on 07/07/2020 to undergo radiofrequency lesioning of the left L2, L3, L4 and L5 medial branch nerves. He returns today to complete this radiofrequency lesioning to address the right L2 through L5 medial branch nerves. He is placing current pain score around 4/10. He reports good efficacy [address] [address] PAIN MANAGEMENT CONSULTATION Name: REINALDO LOMBARDO Room #: REG [facility] Huff#: [id number] Admission: 07/22/20 Attend Phys: Greg Spencer DO Discharge: Date of : 43 Report #: [id number] with the left side injections, hopeful to see similar with the right. ALLERGIES: MORPHINE. CURRENT MEDICATIONS: See chart. SOCIAL HISTORY: The patient denies tobacco, alcohol or illicit drug use. He is retired, retired about 15 years ago, unaccompanied today. IMAGING: No new imaging available. PQRS: The patient has known arthritic changes of lumbar spine, bilateral hips, knees and hands. No rheumatoid arthritis. He is placing pain intensity today at 4/10. He is not a fall risk, has not had a fall in the last 3 months. He is not on blood thinners, but is treated for hypertension. He is not on chronic opioids, has a low opioid addiction potential. Pain impact is 48/70, moderate to severe interference with daily activities secondary to pain. PHYSICAL EXAMINATION: VITAL SIGNS: Blood pressure 119/67, pulse 65, respiratory rate 14 and unlabored. The patient 97% on room air, height 6 feet 2 inches tall, weight 293.4 pounds, BMI calculated 37.7. GENERAL: Well-developed, well-nourished, well-hydrated exogenously obese 74-year-old male, appearing stated age, pain is rated today, 4/10. HEENT: Normocephalic, atraumatic. Pupils are round and responsive. The patient is wearing mask in compliance with COVID-19 regulations. EXTREMITIES: Show no clubbing, no cyanosis. No appreciable edema. MUSCULOSKELETAL: Lower extremity strength is symmetrical 5/5, intact to light touch from L1 through S2 dermatomes. Seated straight leg raising negative. Supine straight leg raising negative. Taryn's test remains negative. Modified Gaenslen's positive for axial low back pain over the right side. Lumbar provocation testing is met with increasing right low back pain, no left. ASSESSMENT: 1. Lumbosacral spondylosis without radiculopathy. 2. Facet arthropathy, lumbar spine. 3. Lumbar degeneration. 4. Chronic intractable pain. PLAN: 1. The patient returns today in followup visit to undergo radiofrequency lesioning of the right L2 through L5 medial branch nerves to complete the radiofrequency lesioning process. He has done very well with the left performed in June. He is hopeful to see similar improvement with his right side today. He returns for right-sided L2, L3, L4, L5 medial branch radiofrequency lesioning. The patient has been advised risks and benefits of the procedure, [address] [address] PAIN MANAGEMENT CONSULTATION Name: REINALDO LOMBARDO Room #: REG [facility] Huff#: [id number] Admission: 07/22/20 Attend Phys: Greg Spencer DO Discharge: Date of : 43 Report #: [id number] states understood and wished to proceed. 2. No medication changes made at today's visit. The patient will continue current medical therapy as prior prescribed. 3. We will see the patient back in followup visit on an as needed basis. We are hopeful the patient will see good and prolonged benefit with radiofrequency lesioning performed today. PROCEDURE NOTE DESCRIPTION OF PROCEDURE: Right L2, L3, L4, L5 radiofrequency lesioning of the medial branch nerves of the lumbar spine. Procedure was explained. Informed consent was obtained from the patient. The patient was informed of the risks of the procedure including infection, bleeding, nerve damage, failure to produce pain relief and postoperative discomfort lasting for several weeks. The patient states understood and wished to proceed. The patient was then taken to the fluoroscopy suite, placed in prone position with pillow under abdomen to decrease lumbar lordosis. Skin overlying lumbosacral area prepped and draped in aseptic fashion. The AP imaging of the lumbar spine was used to identify the L2 through L5 vertebral bodies and the sacral ala. Target locations of the right side was marked. The levels of the L3 transverse process corresponding the L2 medial branch nerve, the L4 transverse process corresponding the L3 medial branch nerve and the L5 transverse process corresponding the L4 medial branch nerve were established. Using a 25-gauge 1-1/4 inch needle, skin wheals were placed at each of the junction sites of the transverse process and the respective superior articular process using 1 mL of 1% preservative-free lidocaine. We were careful to only anesthetize skin and not the deep tissue. Radiofrequency lesioning needles were then advanced under fluoroscopic guidance using a superior to inferior, lateral to medial approach to the dorsal superior and medial aspect the base of transverse processes. [place] were then directed cephalad to reach the target locations. Oblique view facilitated needle placement with properly positioned needles within the middle of the "eye" of the Kenji dog. At each site, needles rested on periosteum. Touching bone initially assured, the needles were placed too deeply. Radiofrequency lesioning of the right L5 medial branch nerve was performed using a superior, inferior, lateral to medial approach under fluoroscopic guidance, placing the needle within the groove between the sacral ala and the superior articular process of S1. Needle rested on periosteum. Stimulation was performed at each level once the cannulas were in position. Sensory stimulation performed at 0.4, 0.5, 0.3, and 0.3 with impedance of 312, [address] [address] PAIN MANAGEMENT CONSULTATION Name: REINALDO LOMBARDO Room #: REG [facility] Huff#: [id number] Admission: 07/22/20 Attend Phys: Greg Spencer DO Discharge: Date of : 43 Report #: [id number] 241, 311 and 153 at 50 Hz for the L2, L3, L4 and L5 medial branch nerves respectively. Good stimulation of the lumbar and buttock region was elicited indicating correct alignment with the posterior primary ramus. Absence of motor fasciculation was noted at 3 volts 2 Hz stimulation during testing of the L2, L3, L4 and L5 medial branch nerves on the right side respectively. Following this, affirmation of dissociation between sensory and motor stimulation, negative aspiration for heme or cerebrospinal fluid was noted at each level. Next, 1 mL of bupivacaine 0.5% was injected slowly. After a 90-second delay, lesions were performed at 80 degrees Celsius for a total of 90 seconds. After the needle tips had cooled, 1 mL solution containing 1 mL 40 mg per mL, 40 mg total triamcinolone along with 3 mL bupivacaine 0.5% injected slowly to avoid forcing the solution away from the sites. [place] were then retracted approximately half way and 1 mL of 1% lidocaine was used to flush the needles and the needles were then removed. Sterile bandage placed over injection site. No new motor deficits present in lower extremity following procedure. The patient tolerated the procedure well, carefully escorted to recovery room in stable condition. No apparent complications. After meeting discharge criteria, the patient discharged home. CHIEF COMPLAINT: Axial back pain. HISTORY OF PRESENT ILLNESS: As you know, the patient is a very pleasant 74-year-old male having completed medial branch nerve blocks with good efficacy returning on 07/07/2020 to undergo radiofrequency lesioning of the left L2, L3, L4 and L5 medial branch nerves. He returns today to complete this radiofrequency lesioning to address the right L2 through L5 medial branch nerves. He is placing current pain score around 4/10. He reports good efficacy with the left side injections, hopeful to see similar with the right. ALLERGIES: MORPHINE. CURRENT MEDICATIONS: See chart. SOCIAL HISTORY: The patient denies tobacco, alcohol or illicit drug use. He is retired, retired about 15 years ago, unaccompanied today. IMAGING: No new imaging available. PQRS: The patient has known arthritic changes of lumbar spine, bilateral hips, knees and hands. No rheumatoid arthritis. He is placing pain intensity today at 4/10. He is not a fall risk, has not had a fall in the last 3 months. He is not on blood thinners, but is treated for hypertension. He is not on chronic opioids, has a low opioid addiction potential. Pain impact is 48/70, moderate to severe interference with daily activities secondary to pain. PHYSICAL EXAMINATION: [facility] [address] [place] [address] PAIN MANAGEMENT CONSULTATION Name: REINALDO LOMBARDO Room #: [facility]#: [id number] Admission: 07/22/20 Attend Phys: Greg Spencer, Discharge: Date of : 43 Report #: [id number] VITAL SIGNS: Blood pressure 119/67, pulse 65, respiratory rate 14 and unlabored. The patient 97% on room air, height 6 feet 2 inches tall, weight 293.4 pounds, BMI calculated 37.7. GENERAL: Well-developed, well-nourished, well-hydrated exogenously obese 74-year-old male, appearing stated age, pain is rated today, 4/10. HEENT: Normocephalic, atraumatic. Pupils are round and responsive. The patient is wearing mask in compliance with COVID-19 regulations. EXTREMITIES: Show no clubbing, no cyanosis. No appreciable edema. MUSCULOSKELETAL: Lower extremity strength is symmetrical 5/5, intact to light touch from L1 through S2 dermatomes. Seated straight leg raising negative. Supine straight leg raising negative. Taryn's test remains negative. Modified Gaenslen's positive for axial low back pain over the right side. Lumbar provocation testing is met with increasing right low back pain, no left. ASSESSMENT: 1. Lumbosacral spondylosis without radiculopathy. 2. Facet arthropathy, lumbar spine. 3. Lumbar degeneration. 4. Chronic intractable pain. PLAN: 1. The patient returns today in followup visit to undergo radiofrequency lesioning of the right L2 through L5 medial branch nerves to complete the radiofrequency lesioning process. He has done very well with the left performed in June. He is hopeful to see similar improvement with his right side today. He returns for right-sided L2, L3, L4, L5 medial branch radiofrequency lesioning. The patient has been advised risks and benefits of the procedure, states understood and wished to proceed. 2. No medication changes made at today's visit. The patient will continue current medical therapy as prior prescribed. 3. We will see the patient back in followup visit on an as needed basis. We are hopeful the patient will see good and prolonged benefit with radiofrequency lesioning performed today. PROCEDURE NOTE DESCRIPTION OF PROCEDURE: Right L2, L3, L4, L5 radiofrequency lesioning of the medial branch nerves of the lumbar spine. Procedure was explained. Informed consent was obtained from the patient. The patient was informed of the risks of the procedure including infection, bleeding, nerve damage, failure to produce pain relief and postoperative discomfort lasting for several weeks. The patient states understood and wished to proceed. The patient was then taken to the fluoroscopy suite, placed in prone position [address] [address] PAIN MANAGEMENT CONSULTATION Name: REINALDO LOMBARDO Room #: REG [facility] Huff#: [id number] Admission: 07/22/20 Attend Phys: Greg Spencer DO Discharge: Date of : 43 Report #: [id number] with pillow under abdomen to decrease lumbar lordosis. Skin overlying lumbosacral area prepped and draped in aseptic fashion. The AP imaging of the lumbar spine was used to identify the L2 through L5 vertebral bodies and the sacral ala. Target locations of the right side was marked. The levels of the L3 transverse process corresponding the L2 medial branch nerve, the L4 transverse process corresponding the L3 medial branch nerve and the L5 transverse process corresponding the L4 medial branch nerve were established. Using a 25-gauge 1-1/4 inch needle, skin wheals were placed at each of the junction sites of the transverse process and the respective superior articular process using 1 mL of 1% preservative-free lidocaine. We were careful to only anesthetize skin and not the deep tissue. Radiofrequency lesioning needles were then advanced under fluoroscopic guidance using a superior to inferior, lateral to medial approach to the dorsal superior and medial aspect the base of transverse processes. [place] were then directed cephalad to reach the target locations. Oblique view facilitated needle placement with properly positioned needles within the middle of the "eye" of the Kenji dog. At each site, needles rested on periosteum. Touching bone initially assured, the needles were placed too deeply. Radiofrequency lesioning of the right L5 medial branch nerve was performed using a superior, inferior, lateral to medial approach under fluoroscopic guidance, placing the needle within the groove between the sacral ala and the superior articular process of S1. Needle rested on periosteum. Stimulation was performed at each level once the cannulas were in position. Sensory stimulation performed at 0.4, 0.5, 0.3, and 0.3 with impedance of 312, 241, 311 and 153 at 50 Hz for the L2, L3, L4 and L5 medial branch nerves respectively. Good stimulation of the lumbar and buttock region was elicited indicating correct alignment with the posterior primary ramus. Absence of motor fasciculation was noted at 3 volts 2 Hz stimulation during testing of the L2, L3, L4 and L5 medial branch nerves on the right side respectively. Following this, affirmation of dissociation between sensory and motor stimulation, negative aspiration for heme or cerebrospinal fluid was noted at each level. Next, 1 mL of bupivacaine 0.5% was injected slowly. After a 90-second delay, lesions were performed at 80 degrees Celsius for a total of 90 seconds. After the needle tips had cooled, 1 mL solution containing 1 mL 40 mg per mL, 40 mg total triamcinolone along with 3 mL bupivacaine 0.5% injected slowly to avoid forcing the solution away from the sites. [place] were then retracted approximately half way and 1 mL of 1% lidocaine was used to flush the needles and the needles were then removed. Sterile bandage placed over injection site. No new motor deficits present in lower extremity following procedure. The patient tolerated the procedure well, carefully escorted to recovery room in stable condition. No apparent complications. After meeting discharge criteria, the patient discharged home. [address] [address] PAIN MANAGEMENT CONSULTATION Name: REINALDO LOMBARDO Room #: REG [facility]#: [id number] Admission: 07/22/20 Attend Phys: Greg Spencer DO Discharge: Date of : 43 Report #: [id number] Greg Spencer DO JEJ/AMI/UPE By: 0822 [id number] Greg Spencer DO /orin
[2020-07-22 09:34] VITALS: BP 119/67
--- NOTE | 2020-07-22 09:40 | NUR ---
Pain Clinic Assessment: 1. History of Osteoarthritis: B/L HANDS SPINE LEGS History of Rheumatoid Arthritis: NONE 2. Height: 6 ft. 2 in. 188.0 cm. Weight: 293.4 lb. oz. 133.086 kg. Patient's BMI: 37.7 3. Vital Signs: BP: 119/67 Pulse: 65 Resp: 14 Temp: 02 Sat: 97 ECG Mon: 4. Pain Intensity: 4 5. Fall Risk: Dizziness: Y Needs help standing or walking: N Fallen in the last 3 months: N Fall risk comments: 6. Patient on Blood Thinner: None 7. History of Hypertension: Y 8. Opioid Therapy greater than 6 weeks: N Opiate Contract Signed: 9. Risk Assessment Tool Provided: 0-LOW RISK 10. Functional Assessment Tool: 48 11. Recreational Drug Use: Never Drug Type: Tobacco Use: Never Smoker Tobacco Type: Amount or Packs/day: How Many Years: Alcohol Use: Yes Frequency: Quant:
== END | disposition home or self-care (01) ==
LOC: PAIN 08:27
PROVIDERS: ATTEND Anesthesiology Pain Medicine
DX: M54.5 Low back pain (principal); M47.816 Spondylosis without myelopathy or radiculopathy, lumbar region; M47.817 Spondylosis without myelopathy or radiculopathy, lumbosacral region; M51.36 Other intervertebral disc degeneration, lumbar region; G89.29 Other chronic pain; I10 Essential (primary) hypertension; M19.90 Unspecified osteoarthritis, unspecified site; Z98.890 Other specified postprocedural states; Z79.899 Other long term (current) drug therapy; Z88.8 Allergy status to other drugs, medicaments and biological substances

== ENCOUNTER → 2020-08-26 | Outpatient (CLI) | payer OTHER ==
[~2020-08-26] VITALS: Ht 188 cm; Wt 130.9 kg
[~2020-08-26] MED LIST changes: +DICLOFENAC SOD50 M1 PO; +TRAMADOL 50 MG50 MG PO
[2020-08-26 09:13] VITALS: BP 133/77
--- NOTE | 2020-08-26 09:22 | NUR ---
Pain Clinic Assessment: 1. History of Osteoarthritis: B/L HANDS SPINE LEGS History of Rheumatoid Arthritis: NONE 2. Height: 6 ft. 2 in. 188.0 cm. Weight: 288.6 lb. oz. 130.908 kg. Patient's BMI: 37.0 3. Vital Signs: BP: 133/77 Pulse: 69 Resp: 16 Temp: 02 Sat: 98 ECG Mon: 4. Pain Intensity: 7 TO 8 5. Fall Risk: Dizziness: Y Needs help standing or walking: N Fallen in the last 3 months: N Fall risk comments: PT FEELS LIKE HIS BP IS LOWER THAN NORMAL FOR HIM RECENTLY PLANS TO SEE HIS PCP TO ADJUST MEDS. 6. Patient on Blood Thinner: None 7. History of Hypertension: Y 8. Opioid Therapy greater than 6 weeks: N Opiate Contract Signed: 9. Risk Assessment Tool Provided: 0-LOW RISK 10. Functional Assessment Tool: 48 11. Recreational Drug Use: Never Drug Type: Tobacco Use: Never Smoker Tobacco Type: Amount or Packs/day: How Many Years: Alcohol Use: Yes Frequency: Special Occasions Quant:
--- NOTE | 2020-09-01 09:33 | HPC ---
[facility] [address] [place] [address] PAIN MANAGEMENT CONSULTATION Name: REINALDO LOMBARDO Room #: REG [facility]andro[facility] [id number] Admission: 08/26/20 Attend Phys: Greg Spencer DO Discharge: Date of : 43 Report #: [id number] THIS REPORT FOR: cc: Macario Evangelista MD, David L. MD Johnson, James E. DO ~ DOC #: [id number] cc: MD Greg Jones DO DATE OF SERVICE: 08/26/2020 REFERRING PHYSICIAN: Dr. Macario Evangelista. CHIEF COMPLAINT: Axial back pain. HISTORY OF PRESENT ILLNESS: As you know, the patient is a very pleasant 74-year-old male who returns today in followup visit having completed radiofrequency lesioning of the right and left sides of the lumbar spine addressing the medial branch nerves respectively. Unfortunately, the patient only received about 20% overall improvement in symptoms with the bilateral injections. This would indicate that the patient's symptoms are related to the bony structures and not to the medial branch nerves as he received only 20% improvement at this time. He is now a month out from his injections and has not seen any further improvement in symptoms. He returns today in followup visit reporting pain score of about 7-8/10 exacerbated with standing and walking. ALLERGIES: MORPHINE. CURRENT MEDICATIONS: Hydrochlorothiazide 25 mg once a day, multivitamin one tab per day, ascorbic acid 500 mg once a day, magnesium 400 mg once a day, folic acid 1 tab per day, loratadine 10 mg once a day, [place] 3 fish oil 1 tab per day, aspirin 325 mg per day, tamsulosin 0.4 mg once a day, metoprolol 25 mg b.i.d., clonazepam 0.5 mg p.o. at bedtime, finasteride 5 mg per day, telmisartan 40 mg once a day, omeprazole 40 mg per day, nabumetone 500 mg b.i.d., potassium citrate 10 mEq 6 times a day, allopurinol 300 mg once a day, simvastatin 40 mg per day. SOCIAL HISTORY: The patient denies tobacco, alcohol or IV or illicit drug use. He is retired, retired about 15 years ago, unaccompanied today. IMAGING: No new imaging available. PQRS: The patient has known arthritic changes of lumbar spine, bilateral hips and knees. No rheumatoid arthritis. He is placing pain intensity today at 7-8/10. He is not a fall risk, has not had a fall in last 3 months. He is not on blood thinners, but he is treated for hypertension. He is on no chronic [address] [address] PAIN MANAGEMENT CONSULTATION Name: REINALDO LOMBARDO Room #: REG [facility] Huff#: [id number] Admission: 08/26/20 Attend Phys: Greg Spencer DO Discharge: Date of : 43 Report #: [id number] opioids, has a low opioid addiction potential. Pain impact is 48/70. Severe interference of daily activities secondary to pain. PHYSICAL EXAMINATION: VITAL SIGNS: Blood pressure 133/77, pulse 69, respiratory rate 16 and unlabored. The patient 98% on room air, height 6 feet 2 inches tall, weight 288.6 pounds, BMI calculated 37.0. GENERAL: Well-developed, well-nourished, well-hydrated 74-year-old male appearing stated age, pain is rated today 7-8/10. HEENT: Normocephalic, atraumatic. Pupils are round and responsive to light. He has a mask in place in response to COVID-19 regulations. EXTREMITIES: Show no clubbing, no cyanosis. No appreciable edema. MUSCULOSKELETAL: Lower extremity strength is symmetrical 5/5 intact to light touch from L1 through S2 dermatomes. Seated straight leg raising negative. Supine straight leg raising negative. Fabere's test is negative. Modified Gaenslen's positive for axial low back pain. There is no spinous process tenderness. Lumbar provocation testing including extension, rotation, lateral, flexion all intensify axial back pain. ASSESSMENT: 1. Lumbosacral spondylosis without radiculopathy. 2. Facet arthropathy of the lumbar spine. 3. Lumbar degeneration. 4. Chronic intractable pain. PLAN: 1. The patient returns today in followup visit having completed radiofrequency lesioning of the medial branch nerves at L2-L3, L3-L4, L4-L5 bilaterally. This was done in June and in July. Unfortunately, the patient only received 20% improvement in symptoms. This would indicate that the majority of the pain he is experiencing is not related to the medial branch nerves, but likely more axial in nature, could also be discogenic in nature. We discussed with the patient that radiofrequency lesioning when affective is very effective, but if the symptoms are related to other pain generators, radiofrequency lesioning does not necessarily provide good long-term benefit. Unfortunately, the patient is experiencing pain from other pain generators at this time. We discussed this with the patient today. 2. We recommend making adjustments in his medications today in hopes of providing better analgesic benefit. We have requested the patient discontinue nabumetone and transition over to diclofenac sodium 50 mg dose 1 tab p.o. b.i.d. This will be taken with meals. I have recommended breakfast and dinner time dose. He is not to take other nonsteroidal anti-inflammatories with this medication. He will watch for side effects of dyspepsia, worsening of blood pressure, lower extremity edema with its use. Prescription was sent via e-scribe to local pharmacy. I did advise the patient if he sees good benefit with the medication over the next couple of weeks, we would be more than willing [facility] [address] [place] [address] PAIN MANAGEMENT CONSULTATION Name: REINALDO LOMBARDO Room #: REG [facility].#: [id number] Admission: 08/26/20 Attend Phys: Greg Spencer DO Discharge: Date of : 43 Report #: [id number] to provide a 3-month prescriptions as the cost of the medication has significantly reduced. 3. We have recommended the patient initiate tramadol therapy for pain control. This will help from an analgesic standpoint. We discussed with the patient to watch for side effects of sleepiness, disorientation, confusion, mental slowing or constipation with his use. He is to utilize the medication only when pain is intolerable, not to rely on the medication prophylactically. He was provided, #60 tablets with refills as necessary. We will be able to obtain this medication through his local pharmacy as the prescription was sent via e-scribe. 4. We will see the patient back in followup visit on an as needed basis. We are hopeful the patient will see good benefit with adjustments in medication. I have requested that he place a phone call to us in [address] our [facility] office to discuss efficacy of the medication. If further adjustments need to be made, we will make over telephone conversation. DO AMY Yan/JOAN <ELECTRONICALLY SIGNED> By: Greg Spencer DO 09/01/20932 1 41 Greg Spencer DO /nt
== END ==
LOC: PAIN 06:52
PROVIDERS: ATTEND Anesthesiology Pain Medicine
DX: M47.817 Spondylosis without myelopathy or radiculopathy, lumbosacral region (principal); G89.4 Chronic pain syndrome; M47.27 Other spondylosis with radiculopathy, lumbosacral region; M51.37 Other intervertebral disc degeneration, lumbosacral region; Z79.899 Other long term (current) drug therapy; Z79.891 Long term (current) use of opiate analgesic